=== PATIENT | male | born 2000 | race Caucasian/White ===

== ENCOUNTER 2024-07-17 13:50 | Observation (INO) | payer BC ==
[2024-07-17] MEDS ORDERED: Sodium Chloride 0.9% 10 ML Syringe FLUSH PRN (14:31)
[2024-07-17] MEDS ORDERED: Acetaminophen 500 MG Tab PO ONE (14:32)
[2024-07-17 14:41] LABS: HEMATOCRIT 44.2 % (42.0-52.0); HEMOGLOBIN 15.3 g/dL (14.0-18.0); MEAN CORPUSCULAR HEMOGLOBIN 31.4 pg (28.0-32.0); MEAN CORPUSCULAR HGB CONC 34.6 g/dL (32.0-36.0); MEAN CORPUSCULAR VOLUME 90.6 fL (83.0-99.0); MEAN PLATELET VOLUME 9.7 fL (9.4-12.4); PLATELET COUNT,PLT 219 K/uL (150-400); RED BLOOD CELL COUNT 4.88 M/uL (4.52-5.90); WHITE BLOOD CELL COUNT,WBC 13.36 K/uL (3.9-11.3)
[2024-07-17] MEDS ORDERED: Dexamethasone 4 MG/ML SDV IVPUSH ONE (14:54)
[2024-07-17 14:57] LABS: A/G RATIO 0.9 (0.9-1.6); ALBUMIN 3.8 g/dL (3.4-5.0); BILIRUBIN TOTAL 0.6 mg/dL (0.2-1.0); C-REACTIVE PROTEIN 7.76 mg/dL (<0.3); CALCIUM 9.3 mg/dL (8.5-10.1); CARBON DIOXIDE,CO2 26.5 mmol/L (21.0-32.0); CREATININE 1.2 mg/dL (0.8-1.3); EST CRCL DRUG DOSING (CG) 98.85 mL/min; POTASSIUM,K 3.5 mmol/L (3.5-5.1); PROTEIN TOTAL,TP 8.1 g/dL (6.4-8.2)
[2024-07-17] MEDS ORDERED: Ondansetron 4 MG/2 ML SDV IVPUSH ONE (14:57)
[2024-07-17] MEDS: Iopamidol 755 MG/ML 500 ML Multipack Bottle IVPUSH STA (15:33)
[2024-07-17 15:45] LABS: LYMPHOCYTES ABSOLUTE MAN 1.87 K/uL (1.00-4.80); LYMPHOCYTES PERCENT MAN 14 % (24-44); MONOCYTES ABSOLUTE MAN 0.94 K/uL (0.00-0.80); MONOCYTES PERCENT MAN 7 % (0-8); SEG NEUTROPHILS ABSOLUTE MAN 10.55 K/uL (1.80-7.70); SEG NEUTROPHILS PERCENT MAN 79 % (41-71)
[2024-07-17 16:22] LABS: APPEARANCE,URINE CLEAR; BILIRUBIN,URINE NEGATIVE (NEGATIVE); COLOR,URINE YELLOW; GLUCOSE,URINE NEGATIVE (NEGATIVE); KETONES,URINE NEGATIVE (NEGATIVE); LEUKOCYTE ESTERASE,URINE NEGATIVE (NEGATIVE); NITRITE,URINE NEGATIVE (NEGATIVE); OCCULT BLOOD,URINE NEGATIVE (NEGATIVE); PROTEIN,URINE NEGATIVE (NEGATIVE); UROBILINOGEN,URINE 0.2 EU/dL (<2.0)
[2024-07-17] MEDS ORDERED: Ampicillin 2 GM in Sodium Chloride 0.9% 100 ML IV ONE (17:00)
[2024-07-17] MEDS: Sodium Chloride 0.9% 1,000 ML IV ONE ×2 (17:10→17:22)
[2024-07-17] MEDS: diphenhydrAMINE 50 MG/ML SDV IVPUSH ONE (17:10)
[2024-07-17] MEDS: Ketorolac 30 MG/ML SDV IVPUSH ONE (17:11)
[2024-07-17] MEDS: Prochlorperazine 10 MG/2 ML SDV IVPUSH ONE (17:13)
[2024-07-17] MEDS: cefTRIAXone 2 GM in Sodium Chloride 0.9% 50 ML IV ONE (17:14)
[2024-07-17] MEDS: Ampicillin 2 GM in Sodium Chloride 0.9% 100 ML IV ONE (17:22)
[2024-07-17] MEDS: Lidocaine 1% 10 ML MDV INFILT ONE (17:23)
[2024-07-17] MEDS: Acetaminophen 500 MG Tab PO ONE (17:26)
[2024-07-17] MEDS: Ondansetron 4 MG/2 ML SDV IVPUSH ONE (17:27)
[2024-07-17 18:49] LABS: APPEARANCE CSF CLEAR; COLOR,CSF COLORLESS; RBC,CSF 0 /uL (0-0); WBC,CSF 0 /uL (0-5)
[2024-07-17] MEDS ORDERED: Ondansetron 4 MG Tab.DIS PO PRN (19:58)
[2024-07-17 22:47] LABS: CORONAVIRUS COVID-19 NAA NEGATIVE (NEGATIVE); INFLUENZA A NAA NEGATIVE (NEGATIVE); INFLUENZA B NAA NEGATIVE (NEGATIVE)
[2024-07-18] MEDS: Acetaminophen 325 MG Tab PO PRN (02:01)
[2024-07-18 06:16] LABS: BASOPHILS ABSOLUTE AUTO 0.02 K/uL (0.00-0.20); BASOPHILS PERCENT AUTO 0.2 % (0.0-1.0); HEMATOCRIT 42.8 % (42.0-52.0); HEMOGLOBIN 14.7 g/dL (14.0-18.0); IMMATURE GRAN ABSOLUTE AUTO 0.05 K/uL (0.00-0.05); IMMATURE GRAN PERCENT AUTO 0.4 % (0.0-0.4); LYMPHOCYTES ABSOLUTE AUTO 1.11 K/uL (1.00-4.80); LYMPHOCYTES PERCENT AUTO 9.6 % (24.0-44.0); MEAN CORPUSCULAR HEMOGLOBIN 31.7 pg (28.0-32.0); MEAN CORPUSCULAR HGB CONC 34.3 g/dL (32.0-36.0); MEAN CORPUSCULAR VOLUME 92.2 fL (83.0-99.0); MEAN PLATELET VOLUME 9.9 fL (9.4-12.4); MONOCYTES ABSOLUTE AUTO 1.11 K/uL (0.00-0.80); MONOCYTES PERCENT AUTO 9.6 % (0.0-8.0); NEUTROPHILS ABSOLUTE AUTO 9.33 K/uL (1.80-7.70); NEUTROPHILS PERCENT AUTO 80.2 % (41.0-71.0); PLATELET COUNT,PLT 209 K/uL (150-400); RED BLOOD CELL COUNT 4.64 M/uL (4.52-5.90); WHITE BLOOD CELL COUNT,WBC 11.62 K/uL (3.9-11.3)
[2024-07-18 06:51] LABS: A/G RATIO 0.8 (0.9-1.6); ALBUMIN 3.1 g/dL (3.4-5.0); BILIRUBIN TOTAL 0.4 mg/dL (0.2-1.0); CREATININE 0.9 mg/dL (0.8-1.3); EST CRCL DRUG DOSING (CG) 131.81 mL/min; POTASSIUM,K 5.1 mmol/L (3.5-5.1); PROTEIN TOTAL,TP 7.1 g/dL (6.4-8.2)
[2024-07-18] MEDS: cefTRIAXone 1 GM in Sodium Chloride 0.9% 50 ML IV SCH (13:06)
[2024-07-19 08:08] LABS: BORDETELLA PARAPERT IS1001 Not Detected (Not Detected)
== END 2024-07-18 14:15 | disposition home or self-care (01) ==
LOC: MW.ED 13:50 → MW.MS 21:00
PROVIDERS: ADMIT Internal Medicine; ATTEND Internal Medicine
DX: J32.9 Chronic sinusitis, unspecified (principal); R51.9 Headache, unspecified; R41.82 Altered mental status, unspecified
CPT/HCPCS: 0240U; 36415; 70450; 70491; 71045; 72125; 80053; 81003; 82945; 82947; 83605; 83735; 84157; 85025; 85652; 86140; 87040; 87070; 87205; 87483; 87486; 87581; 87633; 89050; 97161; A9270; J0290; J0696; J0780; J1100; J1200; J1885; J2405; J3490; J7030; Q9967; 99222; 99239; 99285

== ENCOUNTER 2024-07-21 10:11 | Emergency (ER) | payer BC | END 2024-07-21 12:00 | disposition left against medical advice (07) | LOC: MW.ED 10:11 | DX: Z53.21 Procedure and treatment not carried out due to patient leaving prior to being seen by health care provider (principal) ==